=== PATIENT | female | born 1990 | race Caucasian/White ===

== ENCOUNTER 2017-05-25 20:05 | Emergency (ER) | payer OTHER ==
[2017-05-25 20:14] VITALS: BP 142/90; PULSE 118; RESP 24; TEMP 97.6
[2017-05-25] MEDS ORDERED: methylPREDNISolone SOD SUCCI 125 MG/2 ML VIAL IM STA (20:23)
[2017-05-25] MEDS ORDERED: ORPHENADRINE 30 MG/ML 2 ML VIAL IM STA (20:23)
[2017-05-25] MEDS ORDERED: KETOROLAC 60 MG/2 ML VIAL IM STA (20:23)
--- NOTE | 2017-05-25 20:30 | ED ---
General Adult HPI - General Chief complaint: Back Pain/Injury Stated complaint: back pain Time Seen by Provider: 05/25/17 20:16 Source: patient, RN notes reviewed Mode of arrival: ambulatory Limitations: no limitations - History of Present Illness Initial comments: 26-year-old female presents to the emergency 5 chief complaint of low back pain. Patient states that for last few days getting worse. Patient states that shoots down both legs worsen the left leg. Patient is a loss by bladder functioning saddle anesthesia. Patient history of back pain. Patient states there is no falls traumas or injuries that she is aware of. Patient states any movement causes back pain. Patient was concerned due to her continued discomfort so she thought that she should be evaluated.Patient denies any recent fever, chills, shortness of breath, chest pain, abdominal pain, nausea vomiting, numbness or tingling, dysuria or hematuria, constipation or diarrhea, headaches or visual changes, or any other current symptoms. - Related Data Previous Rx's Medication Instructions Recorded Ibuprofen [Motrin] 600 mg PO Q6HR PRN #20 tab 05/25/17 Orphenadrine [Norflex] 100 mg PO Q12H #10 tablet.er 05/25/17 predniSONE 50 mg PO DAILY #5 tab 05/25/17 Allergies Allergy/AdvReac Type Severity Reaction Status Date / Time No Known Allergies Allergy Verified 05/25/17 20:14 Review of Systems ROS Statement: Those systems with pertinent positive or pertinent negative responses have been documented in the HPI. ROS Other: All systems not noted in ROS Statement are negative. Past Medical History Additional Past Medical History / Comment(s): sciatica. History of Any Multi-Drug Resistant Organisms: None Reported Past Surgical History: No Surgical Hx Reported Past Psychological History: No Psychological Hx Reported Smoking Status: Never smoker Past Alcohol Use History: None Reported Past Drug Use History: None Reported General Exam Limitations: no limitations General appearance: alert, in no apparent distress ENT exam: Present: normal exam, mucous membranes moist Neck exam: Present: normal inspection. Absent: tenderness, meningismus, lymphadenopathy Respiratory exam: Present: normal lung sounds bilaterally. Absent: respiratory distress, wheezes, rales, rhonchi, stridor Cardiovascular Exam: Present: regular rate, normal rhythm, normal heart sounds. Absent: systolic murmur, diastolic murmur, rubs, gallop, clicks Extremities exam: Present: normal inspection, full ROM, normal capillary refill. Absent: tenderness, pedal edema, joint swelling, calf tenderness Back exam: Present: normal inspection, full ROM, other (Left-sided positive straight leg raise). Absent: tenderness, CVA tenderness (L), paraspinal tenderness Neurological exam: Present: alert, oriented X3, reflexes normal. Absent: motor sensory deficit Psychiatric exam: Present: normal affect, normal mood Skin exam: Present: warm, dry, intact, normal color. Absent: rash Course Vital Signs 05/25/17 20:10 Temperature 97.6 F Pulse Rate 118 H Respiratory 24 Rate Blood Pressure 142/90 O2 Sat by Pulse 100 Oximetry Medical Decision Making - Medical Decision Making 26-year-old female presents to the emergency Department chief complaint of what appears to be a flareup of sciatica. At this time x-rays are reviewed. We did discuss follow-up with ortho given their information. We discussed using medications as prescribed and return parameters all questions. Patient stated that she understood and she is with this plan. All questions have been answered. She will be discharged. - Radiology Data Radiology results: report reviewed, image reviewed Disposition Clinical Impression: Strain of lumbar region, Sciatica, left side Disposition: HOME SELF-CARE Condition: Stable Instructions: Acute Low Back Pain (ED) Additional Instructions: Please use medication as discussed. Please follow up with family doctor if symptoms have not improved over the next two days. Please return to the emergency room if your symptoms increase or worsen or for any other concerns. Prescriptions: Ibuprofen [Motrin] 600 mg PO Q6HR PRN #20 tab PRN Reason: Pain Orphenadrine [Norflex] 100 mg PO Q12H #10 tablet.er predniSONE 50 mg PO DAILY #5 tab Referrals: Amadou Masters MD [STAFF PHYSICIAN] - 1-2 days Emiliano Anne MD [STAFF PHYSICIAN] - 1-2 days Time of Disposition: 21:08
--- NOTE | 2017-05-25 20:46 | XR ---
EXAMINATION TYPE: XR lumbar spine 2 or 3V DATE OF EXAM: 05/25/2017 COMPARISON: NONE HISTORY: Back pain TECHNIQUE: 3 views FINDINGS: There is a slight levoscoliosis. There are 6 lumbar type vertebra. Posterior elements are i ntact. There is slight narrowing of the L4-5 disc space. Sacroiliac joints appear intact. IMPRESSION: Minor degenerative disc narrowing at L4-5 on the right side due to slight scoliotic defor mity. No fracture.
== END 2017-05-25 21:16 | disposition home or self-care (01) ==
LOC: EC 20:05
DX: S39.012A Strain of muscle, fascia and tendon of lower back, initial encounter (principal); M54.32 Sciatica, left side; X58.XXXA Exposure to other specified factors, initial encounter
CPT/HCPCS: 72100; 99283; 96372 ×3; J2360; J2930; J1885

== ENCOUNTER 2022-11-21 02:59 | Emergency (ER) | payer OTHER ==
--- NOTE | 2022-11-21 03:30 | ED ---
General Adult HPI <Irina Heredia - Last Filed: 11/21/22 07:22> - General Source: patient, RN notes reviewed Mode of arrival: wheelchair Limitations: no limitations <Patti Garcia - Last Filed: 11/24/22 00:59> - General Chief complaint: GI Bleed Stated complaint: Vomiting Blood Time Seen by Provider: 11/21/22 03:23 - History of Present Illness Initial comments: 32-year-old female with no significant past medical history presents to the emergency department with a chief complaint of vomiting blood. She reports that her symptoms started approximately 6:00pm on 11/20/2022. She repor ts generalized abdominal pain that is sharp and will come and go. She has not taken anything for his symptoms. She is complaining of accompanying symptoms of nausea however she has not vomited. She denies any known fevers, cough, chest pain, shortness of. She does report that she had a bout of bright red blood earlier today. She reports she's never had this before. She denies any recent alcohol or illicit drug use. (Patti Garcia) - Related Data Previous Rx's Medication Instructions Recorded Ibuprofen [Motrin] 600 mg PO Q6HR PRN #20 tab 05/25/17 Orphenadrine [Norflex] 100 mg PO Q12H #10 tablet.er 05/25/17 predniSONE 50 mg PO DAILY #5 tab 05/25/17 Amoxic-Pot Clav 875-125Mg 1 tab PO Q12HR #14 tab 11/21/22 [Augmentin 875-125] Dicyclomine [Bentyl] 10 mg PO TID PRN #15 capsule 11/21/22 Ibuprofen [Motrin] 600 mg PO Q8HR PRN #20 tab 11/21/22 Ondansetron Odt [Zofran Odt] 4 mg PO Q8HR PRN #15 tab 11/21/22 Allergies Allergy/AdvReac Type Severity Reaction Status Date / Time No Known Allergies Allergy Verified 11/21/22 03:13 Review of Systems ROS Other: All systems not noted in ROS Statement are negative. <Irina Heredia - Last Filed: 11/21/22 07:22> ROS Other: All systems not noted in ROS Statement are negative. <Patti Garcia - Last Filed: 11/24/22 00:59> ROS Statement: Those systems with pertinent positive or pertinent negative responses have been documented in the HPI. Past Medical History Additional Past Medical History / Comment(s): sciatica. History of Any Multi-Drug Resistant Organisms: None Reported Past Surgical History: No Surgical Hx Reported Past Psychological History: No Psychological Hx Reported Past Alcohol Use History: None Reported Past Drug Use History: None Reported <Patti Garcia - Last Filed: 11/24/22 00:59> General Exam Limitations: no limitations <Patti Garcia - Last Filed: 11/24/22 00:59> - General Exam Comments Initial Comments: General: Alert, in no acute distress Head: atraumatic normocephalic. Eyes PERRL, EOMI intact, mucous membranes moist Respiratory: Lungs clear to auscultation bilaterally Cardiovascular: Heart rate regular rate and rhythm Abdominal: Soft without guarding or rebound, generalized abdominal tenderness Extremities: Normal inspection with full range of motion and normal capillary refill Neuroogic: alert and oriented 3, CN II-XII intact, able to ambulate with steady gait Skin: warm dry and intact with normal color (Patti Garcia) Course <Patti Garcia - Last Filed: 11/24/22 00:59> Vital Signs 11/21/22 11/21/22 11/21/22 03:14 05:00 06:21 Temperature 97.9 F 98.2 F Pulse Rate 94 72 81 Respiratory 18 16 16 Rate Blood Pressure 128/82 119/74 110/71 O2 Sat by Pulse 98 99 100 Oximetry - Reevaluation(s) Reevaluation #1: 11/21/22 03:59 Rectal exam performed with ER studio technician video operator however present as hedis coordinator. No occult blood in the rectal vault. Patient tolerated well. 11/21/22 04:[address] Heredia who assumes care of the patient while awaiting CT and lab results (Patti Garcia) Medical Decision Making - Lab Data Result diagrams: 11/21/22 04:10 11/21/22 04:10 <Irina Heredia - Last Filed: 11/21/22 07:22> - Lab Data Result diagrams: 11/21/22 04:10 11/21/22 04:10 <Patti Garcia - Last Filed: 11/24/22 00:59> - Medical Decision Making Patient was signed out to me awaiting labs and imaging. Laboratory studies demonstrate hemoglobin of 14.6. Occult is negative. CT demonstrates a focal segment of colitis. Patient given a dose of Rocephin and will be discharged home on Zofran, Bentyl, Augmentin. Instructed to follow up with primary care doctor in 2-4 days return for any new or worsening symptoms. Patient was agreeable plan she was discharged with stable condition (Irina Heredia) Was pt. sent in by a medical professional or institution (RANDAL Hanson, RAIL OPERATOR, urgent care, hospital, or senior care...) When possible be specific @ -[No] Did you speak to anyone other than the patient for history (EMS, parent, family, police, friend...)? What history was obtained from this source @ -Mother Did you review nursing and triage notes (agree or disagree)? Why? @ -[I reviewed and agree with nursing and triage notes] Were old charts reviewed (outside hosp., previous admission, EMS record, old EKG, old radiological studies, urgent care reports/EKG's, senior care records)? Report findings @ -[No old charts were reviewed] Differential Diagnosis (chest pain, altered mental status, abdominal pain women, abdominal pain men, vaginal bleeding, weakness, fever, dyspnea, syncope, headache, dizziness, GI bleed, back pain, seizure, CVA, palpatations, mental health, musculoskeletal)? @ -[not applicable] EKG interpreted by me (3pts min.). @ -[As above] X-rays interpreted by me (1pt min.). @ -[None done] CT interpreted by me (1pt min.). @ -[None done] U/S interpreted by me (1pt. min.). @ -[None done] What testing was considered but not performed or refused? (CT, X-rays, U/S, labs)? Why? @ -[None] What meds were considered but not given or refused? Why? @ -[None] Did you discuss the management of the patient with other professionals (professionals i.e. RANDAL Hanson, RAIL OPERATOR, lab, RT, psych nurse, social worker assistant, family lawyer, teacher, guest relations officer, watch caser)? Give summary @ -[No] Was smoking cessation discussed for >3mins.? @ -[No] Was critical care preformed (if so, how long)? @ -[No] Were there social determinants of health that impacted care today? How? (Homelessness, low income, unemployed, alcoholism, drug addiction, transportation, low edu. Level, literacy, decrease access to med. care, group home, rehab)? @ -[No] Was there de-escalation of care discussed even if they declined (Discuss DNR or withdrawal of care, Hospice)? DNR status @ -[No] What co-morbidities impacted this encounter? (DM, HTN, Smoking, COPD, CAD, Cancer, CVA, ARF, Chemo, Hep., AIDS, mental health diagnosis, sleep apnea, morbid obesity)? @ -[None] Was patient admitted / discharged? Hospital course, mention meds given and route, prescriptions, significant lab abnormalities, going to OR and other pertinent info. @ -Pending. This is a 32-year-old female who presents the emergency department with abdominal pain. Patient had a thorough history and physical exam performed while in the ED. Physical exam reveals heart rate regular rate and rhythm, lungs clear to auscultation bilaterally abdomen soft and with generalized tenderness. Patient had lab work and imaging ordered. Case was signed out to RYAN Mehta while awaiting further lab results Undiagnosed new problem with uncertain prognosis? @ -[No] Drug Therapy requiring intensive monitoring for toxicity (Heparin, Nitro, Insuli n, Cardizem)? @ -[No] Were any procedures done? @ -[No] Diagnosis/symptom? @ -abdominal pain Acute, or Chronic, or Acute on Chronic? @ -acute Uncomplicated (without systemic symptoms) or Complicated (systemic symptoms)? @ -uncomplicated Side effects of treatment? @ -[No] Exacerbation, Progression, or Severe Exacerbation? @ -[No] Poses a threat to life or bodily function? How? (Chest pain, USA, VT, pneumonia, PE, COPD, DKA, ARF, appy, cholecystitis, CVA, Diverticulitis, Homicidal, Suicidal, threat to staff... and all critical care pts) @ -low likelihood (Patti Garcia) - Lab Data Lab Results 11/21/22 11/21/22 11/21/22 Range/Units 04:09 04:10 04:10 WBC 10.8 H (3.8-10.6) k/uL RBC 5.13 (3.80-5.40) m/uL Hgb 14.6 (11.4-16.0) gm/dL Hct 42.1 (34.0-46.0) % MCV 82.1 (80.0-100.0) fL MCH 28.4 (25.0-35.0) pg MCHC 34.6 (31.0-37.0) g/dL RDW 12.5 (11.5-15.5) % Plt Count 299 (150-450) k/uL MPV 7.2 Neutrophils % 85 % Lymphocytes % 11 % Monocytes % 4 % Eosinophils % 0 % Basophils % 0 % Neutrophils # 9.1 H (1.3-7.7) k/uL Lymphocytes # 1.1 (1.0-4.8) k/uL Monocytes # 0.4 (0-1.0) k/uL Eosinophils # 0.0 (0-0.7) k/uL Basophils # 0.0 (0-0.2) k/uL Sodium (137-145) mmol/L Potassium (3.5-5.1) mmol/L Chloride (98-107) mmol/L Carbon Dioxide (22-30) mmol/L Anion Gap mmol/L BUN (7-17) mg/dL Creatinine (0.52-1.04) mg/dL Est GFR (CKD-EPI)AfAm (>60 ml/min/1.73 sqM) Est GFR (CKD-EPI)NonAf (>60 ml/min/1.73 sqM) Glucose (74-99) mg/dL Calcium (8.4-10.2) mg/dL Total Bilirubin (0.2-1.3) mg/dL AST (14-36) U/L ALT (4-34) U/L Alkaline Phosphatase (38-126) U/L Total Protein (6.3-8.2) g/dL Albumin (3.5-5.0) g/dL Amylase (30-110) U/L Lipase (23-300) U/L Urine HCG, Qual Not Detected (Not Detectd) Stool Occult Blood Negative (Negative) Influenza Type A (PCR) (Not Detectd) Influenza Type B (PCR) (Not Detectd) RSV (PCR) (Not Detectd) SARS-CoV-2 (PCR) (Not Detectd) 11/21/22 11/21/22 Range/Units 04:10 04:10 WBC (3.8-10.6) k/uL RBC (3.80-5.40) m/uL Hgb (11.4-16.0) gm/dL Hct (34.0-46.0) % MCV (80.0-100.0) fL MCH (25.0-35.0) pg MCHC (31.0-37.0) g/dL RDW (11.5-15.5) % Plt Count (150-450) k/uL MPV Neutrophils % % Lymphocytes % % Monocytes % % Eosinophils % % Basophils % % Neutrophils # (1.3-7.7) k/uL Lymphocytes # (1.0-4.8) k/uL Monocytes # (0-1.0) k/uL Eosinophils # (0-0.7) k/uL Basophils # (0-0.2) k/uL Sodium 136 L (137-145) mmol/L Potassium 3.9 (3.5-5.1) mmol/L Chloride 103 (98-107) mmol/L Carbon Dioxide 21 L (22-30) mmol/L Anion Gap 12 mmol/L BUN 12 (7-17) mg/dL Creatinine 0.73 (0.52-1.04) mg/dL Est GFR (CKD-EPI)AfAm >90 (>60 ml/min/1.73 sqM) Est GFR (CKD-EPI)NonAf >90 (>60 ml/min/1.73 sqM) Glucose 122 H (74-99) mg/dL Calcium 10.0 (8.4-10.2) mg/dL Total Bilirubin 0.5 (0.2-1.3) mg/dL AST 24 (14-36) U/L ALT 18 (4-34) U/L Alkaline Phosphatase 43 (38-126) U/L Total Protein 7.0 (6.3-8.2) g/dL Albumin 4.1 (3.5-5.0) g/dL Amylase 47 (30-110) U/L Lipase 23 (23-300) U/L Urine HCG, Qual (Not Detectd) Stool Occult Blood (Negative) Influenza Type A (PCR) Not Detected (Not Detectd) Influenza Type B (PCR) Not Detected (Not Detectd) RSV (PCR) Not Detected (Not Detectd) SARS-CoV-2 (PCR) Not Detected (Not Detectd) Disposition Is patient prescribed a controlled substance at d/c from ED?: No Time of Disposition: 06:39 <Irina Heredia - Last Filed: 11/21/22 07:22> <Patti Garcia - Last Filed: 11/24/22 00:59> Clinical Impression: Nausea and vomiting Disposition: HOME SELF-CARE Condition: Stable Instructions (If sedation given, give patient instructions): Colitis (ED) Additional Instructions: Please take Motrin and Tylenol for pain. Alternate taking 1 every 4 hours. Follow up with the GI doctor in regards to your symptoms. And return for any uncontrolled heavy bleeding Prescriptions: Amoxic-Pot Clav 875-125Mg [Augmentin 875-125] 1 tab PO Q12HR #14 tab Dicyclomine [Bentyl] 10 mg PO TID PRN #15 capsule PRN Reason: See Comments Ibuprofen [Motrin] 600 mg PO Q8HR PRN #20 tab PRN Reason: Pain Ondansetron Odt [Zofran Odt] 4 mg PO Q8HR PRN #15 tab PRN Reason: Nausea Referrals: None,Stated [Primary Care Provider] - 1-2 days Sofya Andrade MD [STAFF PHYSICIAN] - 1-2 days
[2022-11-21] MEDS ORDERED: ONDANSETRON 4 MG/2 ML VIAL IVP STA (04:01)
[2022-11-21] MEDS ORDERED: METOCLOPRAMIDE 5 MG/ML 2 ML VIAL IVP STA (04:01)
[2022-11-21] MEDS ORDERED: SODIUM CHLORIDE 0.9% 1,000 ML IV ONE (04:01)
[2022-11-21] MEDS ORDERED: KETOROLAC 15 MG/ML 1 ML VIAL IVP STA (04:02)
[2022-11-21] MEDS ORDERED: FAMOTIDINE 20 MG/2 ML VIAL IV STA (04:02)
[2022-11-21] MEDS ORDERED: diphenhydrAMINE 50 MG/ML 1 ML VIAL IVP STA (04:23)
[2022-11-21 04:37] LABS: Basophils % (A) 0 %; Eosinophils % (A) 0 %; HCT 42.1 % (34.0-46.0); HGB 14.6 gm/dL (11.4-16.0); Lymphocytes # (A) 1.1 k/uL (1.0-4.8); Lymphocytes % (A) 11 %; MCH 28.4 pg (25.0-35.0); MCHC 34.6 g/dL (31.0-37.0); MCV 82.1 fL (80.0-100.0); Mean Platelet Volume 7.2; Monocytes # (A) 0.4 k/uL (0-1.0); Monocytes % (A) 4 %; Neutrophils # (A) 9.1 k/uL (1.3-7.7); Neutrophils % (A) 85 %; Platelet Count 299 k/uL (150-450); RBC 5.13 m/uL (3.80-5.40); RDW 12.5 % (11.5-15.5); WBC 10.8 k/uL (3.8-10.6)
[2022-11-21 04:47] LABS: ALT 18 U/L (4-34); AST 24 U/L (14-36); African American GFR (CKD) >90 (>60 ml/min/1.73 sqM); Albumin 4.1 g/dL (3.5-5.0); Alkaline Phosphatase 43 U/L (38-126); Amylase 47 U/L (30-110); Anion Gap 12 mmol/L; Blood Urea Nitrogen 12 mg/dL (7-17); Carbon Dioxide 21 mmol/L (22-30); Chloride 103 mmol/L (98-107); Glucose 122 mg/dL (74-99); Lipase 23 U/L (23-300); Non-African American GFR(CKD) >90 (>60 ml/min/1.73 sqM); Potassium 3.9 mmol/L (3.5-5.1); Sodium 136 mmol/L (137-145); Total Bilirubin 0.5 mg/dL (0.2-1.3)
[2022-11-21 05:28] VITALS: RESP 16
--- NOTE | 2022-11-21 06:17 | CT ---
EXAMINATION TYPE: CT abdomen pelvis w con DATE OF EXAM: 11/21/2022 HISTORY: Vomiting blood and blood in stool CT DLP: 691mGycm Automated Exposure Control for Dose Reduction was Utilized. CONTRAST: CT scan of the abdomen and pelvis is performed without oral with IV Contrast, patient injected with 1 00ml mL of Isovue 300. COMPARISON: None. FINDINGS: LUNG BASES: No significant abnormality is appreciated. LIVER/GB: No significant abnormality is appreciated. PANCREAS: No significant abnormality is seen. SPLEEN: No significant abnormality is seen. ADRENALS: No significant abnormality is seen. KIDNEYS: No significant abnormality is seen. BOWEL: Slightly suboptimal study without enteric contrast. No suspicious small or large bowel dilatat ion. Focal moderate to severe wall thickening beginning in the mid transverse colon extending through the splenic flexure through the entire left colon. There is focal mild/moderate ill-defined fluid an d fat stranding near region of the splenic flexure axial image 25. No well formed fluid collection or abscess. No free air. UTERUS/ADNEXA: No gross abnormality seen. LYMPH NODES: No greater than 1cm abdominal or pelvic lymph nodes are appreciated. OSSEOUS STRUCTURES: Moderate disc space narrowing L3-L4 level. OTHER: Small fat-containing umbilical hernia. IMPRESSION: CT findings consistent with a uncomplicated acute focal colitis centered near the splenic flexure. Differential includes infectious, inflammatory, and extremely unlikely ischemic etiology.
[2022-11-21 06:22] VITALS: BP 110/71; PULSE 81
[2022-11-21] MEDS ORDERED: cefTRIAXone IN SWFI 1,000 MG/10 ML SYRINGE IVP STA (06:22)
[2022-11-21 06:25] VITALS: TEMP 98.2
== END 2022-11-21 06:40 | disposition home or self-care (01) ==
LOC: EC 02:59
DX: R11.2 Nausea with vomiting, unspecified (principal); Z20.822 Contact with and (suspected) exposure to COVID-19
CPT/HCPCS: 36415; 80053; 82150; 83690; 85025; 82272; 81025; 87636; 74177; 99285; 96374; 96375 ×5; 96361; J1200; J2765; J2405; J0696; J1885; Q9967

== ENCOUNTER 2023-10-03 16:52 | Observation (INO) | payer OTHER ==
--- NOTE | 2023-10-03 17:26 | ED ---
Chest Pain HPI - General Chief Complaint: Chest Pain Stated Complaint: Chest Pains Time Seen by Provider: 10/03/23 17:07 Source: patient, RN notes reviewed, old records reviewed Mode of arrival: ambulatory Limitations: no limitations - History of Present Illness Initial Comments: This is a 32-year-old female to the ER for evaluation. Patient was seen for evaluation of chest pain or shortness of breath. Patient has persistent chest pain here in the ER severe anterior chest pain with shortness of breath. Does not feel well open feeling weak and fatigued. Patient states the pain has been episodic maybe for about a month and has been causing her higher heart rates, she went to the urgent care and was sent to the ER for evaluation MD Complaint: chest pain -: week(s) Onset: during rest, during exertion Pain Location: substernal, left chest Pain Radiation: none Severity: moderate Severity scale (1-10): 4 Quality: heaviness, sharp Consistency: intermittent Improves With: nothing Worsens With: nothing Anginal Symptoms: dyspnea, sense of impending doom Other Symptoms: palpitations Treatments Prior to Arrival: none - Related Data On Oral Contraceptives: No Home Medications Medication Instructions Recorded Confirmed Control(Unknown) 1 tab PO HS 10/03/23 10/04/23 Dextroamphetamine/Amphetamine 30 mg PO BID@0500,1400 10/03/23 10/04/23 [Adderall] Magnesium Oxide [Magnesium] 500 mg PO HS 10/03/23 10/04/23 Allergies Allergy/AdvReac Type Severity Reaction Status Date / Time No Known Allergies Allergy Verified 10/04/23 10:40 Review of Systems ROS Statement: Those systems with pertinent positive or pertinent negative responses have been documented in the HPI. ROS Other: All systems not noted in ROS Statement are negative. EKG Findings - EKG Comments: EKG Findings:: EKG is sinus tachycardia 110 MO 125 QRS 88 QTc 388 - EKG Results: EKG: interpreted by ERMD - Dysrhythmias: Sinus rhythms and dysrhythmias: sinus rhythm (EKG sinus 95 MO 130 QRS 87 QTc 389) Past Medical History Additional Past Medical History / Comment(s): sciatica. History of Any Multi-Drug Resistant Organisms: None Reported Past Surgical History: No Surgical Hx Reported Past Psychological History: Anxiety Past Alcohol Use History: None Reported Past Drug Use History: None Reported General Exam Limitations: no limitations General appearance: alert, in no apparent distress, anxious Head exam: Present: atraumatic, normocephalic, normal inspection Eye exam: Present: normal appearance, PERRL, EOMI. Absent: scleral icterus, conjunctival injection, periorbital swelling ENT exam: Present: normal exam, mucous membranes moist Neck exam: Present: normal inspection. Absent: tenderness, meningismus, lymphadenopathy Respiratory exam: Present: normal lung sounds bilaterally. Absent: respiratory distress, wheezes, rales, rhonchi, stridor Cardiovascular Exam: Present: normal rhythm, tachycardia, normal heart sounds. Absent: systolic murmur, diastolic murmur, rubs, gallop, clicks GI/Abdominal exam: Present: soft, normal bowel sounds. Absent: distended, tenderness, guarding, rebound, rigid Extremities exam: Present: normal inspection, full ROM, normal capillary refill. Absent: tenderness, pedal edema, joint swelling, calf tenderness Back exam: Present: normal inspection Neurological exam: Present: alert, oriented X3, CN II-XII intact Psychiatric exam: Present: normal affect, normal mood Skin exam: Present: warm, dry, intact, normal color. Absent: rash Course Vital Signs 10/03/23 10/03/23 10/03/23 16:58 19:02 20:14 Temperature 97.7 F Pulse Rate 119 H 85 89 Respiratory 18 20 20 Rate Blood Pressure 134/95 121/81 134/87 O2 Sat by Pulse 100 99 95 Oximetry 10/03/23 10/04/23 21:40 00:22 Temperature 98.5 F Pulse Rate 90 94 Respiratory 20 18 Rate Blood Pressure 122/76 134/93 O2 Sat by Pulse 100 Oximetry - Reevaluation(s) Reevaluation #1: 10/03/23 19:46 Medical records reviewed Reevaluation #2: 10/03/23 19:46 Patient symptoms unchanged despite pain medication Reevaluation #3: 10/03/23 19:46 Patient informed of results and questions answered Studies CTA chest is negative for acute disease Reevaluation #4: Was pt. sent in by a medical professional or institution (, PA, EMERGENCY SERVICE WORKER, urgent care, hospital, or [facility]...) When possible be specific @ -no Did you speak to anyone other than the patient for history (EMS, parent, family, police, friend...)? What history was obtained from this source @ -no Did you review nursing and triage notes (agree or disagree)? Why? @ -agree Are old charts reviewed (outside hosp., previous admission, EMS record, old EKG, old radiological studies, urgent care reports/EKG's, [facility] records)? Report findings @ -yes Differential Diagnosis (chest pain, altered mental status, abdominal pain women, abdominal pain men, vaginal bleeding, weakness, fever, dyspnea, syncope, headache, dizziness, GI bleed, back pain, seizure, CVA, palpatations, mental health, musculoskeletal)? @ -prior EKG interpreted by me (3pts min.). @ -yes X-rays interpreted by me (1pt min.). @ -no CT interpreted by me (1pt min.). @ -yes negative for acute disease U/S interpreted by me (1pt. min.). @ -no What testing was considered but not performed or refused? (CT, X-rays, U/S, labs)? Why? @ -none What meds were considered but not given or refused? Why? @ -none Did you discuss the management of the patient with other professionals (professionals i.e. , PA, EMERGENCY SERVICE WORKER, lab, RT, psych nurse, child welfare social worker, supervisor heat treating, teacher, penal officer, social work case manager)? Give summary @ -no Was smoking cessation discussed for >3mins.? @ -no Was critical care preformed (if so, how long)? @ -no Were there social determinants of health that impacted care today? How? (Homelessness, low income, unemployed, alcoholism, drug addiction, transportation, low edu. Level, literacy, decrease access to med. care, [facility], rehab)? @ -none Was there de-escalation of care discussed even if they declined (Discuss DNR or withdrawal of care, Hospice)? DNR status @ -no What co-morbidities impacted this encounter? (DM, HTN, Smoking, COPD, CAD, Cancer, CVA, ARF, Chemo, Hep., AIDS, mental health diagnosis, sleep apnea, morbid obesity)? @ -none Was patient admitted / discharged? Hospital course, mention meds given and route, prescriptions, significant lab abnormalities, going to OR and other pertinent info. @ - 32 female to the ER for evaluation of chest pain. Patient has persistent heavy chest pain sharp chest pain here in the emergency department and feels uncomfortable. Patient has a mild troponin leak and will admit for cardiology evaluation Discharge Undiagnosed new problem with uncertain prognosis? @ -no Drug Therapy requiring intensive monitoring for toxicity (Heparin, Nitro, Insulin, Cardizem)? @ -no Were any procedures done? @ -no Diagnosis/symptom? @ -Chest pain Acute, or Chronic, or Acute on Chronic? @ -Acute Uncomplicated (without systemic symptoms) or Complicated (systemic symptoms)? @ -Complicated Side effects of treatment? @ -no Exacerbation, Progression, or Severe Exacerbation? @ -exacerbation Poses a threat to life or bodily function? How? (Chest pain, [place], [place], pneumonia, PE, COPD, DKA, ARF, appy, cholecystitis, CVA, Diverticulitis, Homicidal, Suicidal, threat to staff... and all critical care pts) @ -yes with significant chest pain Reevaluation #5: Differential Chest Pain: Stable Angina, Unstable Angina, STEMI, NSTEMI Aortic Dissection, Pneumothorax, Musculoskeletal, Esophageal Spasm GERD, Cholecystitis, Pancreatitis, Zoster, this is not meant to be an all-inclusive list. - Consultations Consultation #1: Carmen chappell who agrees to admit this patient Chest Pain MDM - MDM 32 female to the ER for evaluation of chest pain. Patient has persistent heavy chest pain sharp chest pain here in the emergency department and feels uncomfortable. Patient has a mild troponin leak and will admit for cardiology evaluation Disposition Clinical Impression: Atypical chest pain, Chest pain Disposition: LEFT AGAINST MEDICAL ADVICE Condition: Good Is patient prescribed a controlled substance at d/c from ED?: No Time of Disposition: 19:45
[2023-10-03 18:05] LABS: Basophils # (A) 0.1 k/uL (0-0.2); Basophils % (A) 1 %; Eosinophils # (A) 0.1 k/uL (0-0.7); Eosinophils % (A) 1 %; HCT 48.1 % (34.0-46.0); HGB 16.2 gm/dL (11.4-16.0); Lymphocytes # (A) 2.1 k/uL (1.0-4.8); Lymphocytes % (A) 23 %; MCH 28.6 pg (25.0-35.0); MCHC 33.7 g/dL (31.0-37.0); MCV 84.8 fL (80.0-100.0); Mean Platelet Volume 7.6; Monocytes # (A) 0.3 k/uL (0-1.0); Monocytes % (A) 3 %; Neutrophils # (A) 6.6 k/uL (1.3-7.7); Neutrophils % (A) 72 %; Platelet Count 342 k/uL (150-450); RBC 5.67 m/uL (3.80-5.40); RDW 12.6 % (11.5-15.5); WBC 9.2 k/uL (3.8-10.6)
[2023-10-03 18:23] LABS: ALT 17 U/L (4-34); African American GFR (CKD) >90 (>60 ml/min/1.73 sqM); Albumin 4.7 g/dL (3.5-5.0); Anion Gap 10 mmol/L; Blood Urea Nitrogen 10 mg/dL (7-17); Calcium 10.1 mg/dL (8.4-10.2); Carbon Dioxide 21 mmol/L (22-30); Chloride 107 mmol/L (98-107); Glucose 89 mg/dL (74-99); Lipase 38 U/L (23-300); Non-African American GFR(CKD) >90 (>60 ml/min/1.73 sqM); Sodium 138 mmol/L (137-145); Total Bilirubin 0.7 mg/dL (0.2-1.3); Total Protein 8.2 g/dL (6.3-8.2)
[2023-10-03 18:24] LABS: AST 34 U/L (14-36); Alkaline Phosphatase 47 U/L (38-126); Magnesium 2.1 mg/dL (1.6-2.3)
[2023-10-03 18:30] LABS: NT-Pro-B-Type Natriuretic Pept 32 pg/mL
[2023-10-03 18:31] LABS: INR 0.9 (<1.2); Prothrombin Time 9.9 sec (10.0-12.5)
[2023-10-03 18:37] LABS: Partial Thromboplastin Time 21.1 sec (22.0-30.0)
--- NOTE | 2023-10-03 18:38 | CT ---
EXAMINATION TYPE: CT angio chest CT DLP: 229.1 mGycm, Automated exposure control for dose reduction was used. DATE OF EXAM: 10/03/2023 6:20 PM COMPARISON: None CLINICAL INDICATION:Female, 32 years old with history of PE; chest pain TECHNIQUE/CONTRAST: CTA scan of the thorax is performed with IV Contrast, patient injected with 100 ml mL of Isovue 370, MIP images are created and reviewed these are created on a separate workstation.. FINDINGS: Pulmonary Artery: There is no evidence for a filling defect within the pulmonary vasculature to sugge st acute pulmonary embolism. The pulmonary artery is of normal size. Lungs/Pleura: No evidence of focal consolidation, pleural effusion or pneumothorax. Airway: Large airways are patent. Heart: Heart is within normal limits for size. Vasculature: No evidence of aortic aneurysm. Mediastinum: No gross evidence of adenopathy. Musculoskeletal: No acute osseous abnormalities Soft Tissues: Unremarkable. Lower neck: No significant findings. Upper Abdomen: No significant findings. IMPRESSION: No evidence of pulmonary embolism.
[2023-10-03] MEDS: KETOROLAC 15 MG/ML 1 ML VIAL IVP STA (19:30)
[2023-10-03] MEDS: MORPHINE SULFATE 4 MG/ML SYRINGE IV STA (19:31)
[2023-10-03] MEDS: SODIUM CHLORIDE 0.9% 1,000 ML IV STA (19:31)
[2023-10-03] MEDS ORDERED: KETOROLAC 15 MG/ML 1 ML VIAL IVP PRN (19:44)
[2023-10-03] MEDS ORDERED: MORPHINE SULFATE 4 MG/ML SYRINGE IV PRN (19:44)
[2023-10-03] MEDS ORDERED: ONDANSETRON 4 MG/2 ML VIAL IVP PRN (19:44)
[2023-10-03] MEDS ORDERED: NALOXONE 0.4 MG/ML 1 ML VIAL IV PRN (19:44)
[2023-10-03] MEDS: SODIUM CHLORIDE 0.9% 1,000 ML IV SCH (20:11)
[2023-10-04 00:33] VITALS: BP 134/93; PULSE 94; RESP 18; TEMP 98.5
== END 2023-10-04 00:22 | disposition left against medical advice (07) ==
LOC: EC 16:52 → 6NMEDSUR 19:45
PROVIDERS: ADMIT Internal Medicine; ATTEND Internal Medicine
DX: R07.89 Other chest pain (principal); R79.89 Other specified abnormal findings of blood chemistry; R06.02 Shortness of breath; R00.2 Palpitations; R00.0 Tachycardia, unspecified; Z53.29 Procedure and treatment not carried out because of patient's decision for other reasons; Z79.3 Long term (current) use of hormonal contraceptives; Z79.899 Other long term (current) drug therapy
CPT/HCPCS: 96360; 96361; 99285; 36415; 93005; 85379; 83880; 80053; 83690; 83735; 84484; 85025; 85610; 85730; 71275; G0378; Q9967

== ENCOUNTER 2023-10-04 07:54 | Observation (INO) | payer OTHER ==
--- NOTE | 2023-10-04 08:08 | ED ---
General Adult HPI - General Chief complaint: Chest Pain Stated complaint: Chest Pain Time Seen by Provider: 10/04/23 08:02 Source: patient, RN notes reviewed, old records reviewed Mode of arrival: ambulatory Limitations: no limitations - History of Present Illness Initial comments: Patient is a pleasant 32-year-old female present to the emergency department with concerns for chest discomfort. Onset of symptoms was yesterday. Patient was in the emergency department last night and left AGAINST MEDICAL ADVICE. Patient states she had to go take her child to school. Patient states symptoms have continued. No palpitations. Patient states she does get easily winded. Patient admits to feeling anxious and states that is pretty constant for her. N o calf pain or leg swelling. No nausea. No diaphoresis. No history of known heart disease. - Related Data Home Medications Medication Instructions Recorded Confirmed Control(Unknown) 1 tab PO HS 10/03/23 10/04/23 Dextroamphetamine/Amphetamine 30 mg PO BID@0500,1400 10/03/23 10/04/23 [Adderall] Magnesium Oxide [Magnesium] 500 mg PO HS 10/03/23 10/04/23 Allergies Allergy/AdvReac Type Severity Reaction Status Date / Time No Known Allergies Allergy Verified 10/04/23 10:40 Review of Systems ROS Statement: Those systems with pertinent positive or pertinent negative responses have been documented in the HPI. ROS Other: All systems not noted in ROS Statement are negative. Constitutional: Denies: fever Eyes: Denies: eye pain ENT: Denies: ear pain Respiratory: Reports: as per HPI. Denies: cough Cardiovascular: Reports: as per HPI, chest pain. Denies: palpitations Endocrine: Denies: fatigue Gastrointestinal: Denies: abdominal pain, vomiting Musculoskeletal: Denies: back pain Past Medical History Additional Past Medical History / Comment(s): sciatica. colitis History of Any Multi-Drug Resistant Organisms: None Reported Past Surgical History: No Surgical Hx Reported Past Psychological History: Anxiety Past Alcohol Use History: None Reported Past Drug Use History: None Reported General Exam Limitations: no limitations General appearance: alert, in no apparent distress Head exam: Present: normocephalic Eye exam: Present: normal appearance Neck exam: Present: normal inspection Respiratory exam: Present: normal lung sounds bilaterally Cardiovascular Exam: Present: normal rhythm, tachycardia Expanded Peripheral pulses: 2+: Radial (R), Radial (L), Dorsalis Pedis (R), Dorsalis Pedis (L) GI/Abdominal exam: Present: soft. Absent: tenderness Extremities exam: Present: normal inspection. Absent: pedal edema, calf tenderness Neurological exam: Present: alert Psychiatric exam: Present: normal affect, normal mood Skin exam: Present: normal color Course Vital Signs 10/04/23 10/04/23 10/04/23 07:55 09:58 10:52 Temperature 97.7 F Pulse Rate 142 H 124 H 98 Respiratory 24 18 18 Rate Blood Pressure 140/102 147/96 135/92 O2 Sat by Pulse 97 100 100 Oximetry EKG Findings - EKG Results: EKG: interpreted by ERMD, sinus rhythm, normal axis, normal QRS, normal ST/T EKG shows: tachycardia Medical Decision Making - Medical Decision Making Was pt. sent in by a medical professional or institution (Dr. PA, TRAIN CONDUCTOR, urgent care, hospital, or long-term...) When possible be specific @ -No Did you speak to anyone other than the patient for history (EMS, parent, family, police, friend...)? What history was obtained from this source @ -No Did you review nursing and triage notes (agree or disagree)? Why? @ -I reviewed and agree with nursing and triage notes Were old charts reviewed (outside hosp., previous admission, EMS record, old EKG, old radiological studies, urgent care reports/EKG's, long-term records)? Report findings @ -Previous labs and x-ray reviewed Differential Diagnosis (chest pain, altered mental status, abdominal pain women, abdominal pain men, vaginal bleeding, weakness, fever, dyspnea, syncope, headache, dizziness, GI bleed, back pain, seizure, CVA, palpatations, mental health, musculoskeletal)? @ -Differential Chest Pain: Stable Angina, Unstable Angina, STEMI, NSTEMI Aortic Dissection, Pneumothorax, Musculoskeletal, Esophageal Spasm GERD, Cholecystitis, Pancreatitis, Zoster, this is not meant to be an all-inclusive list. EKG interpreted by me (3pts min.). @ -As above X-rays interpreted by me (1pt min.). @ -Chest x-ray shows no acute process CT interpreted by me (1pt min.). @ -None done U/S interpreted by me (1pt. min.). @ -None done What testing was considered but not performed or refused? (CT, X-rays, U/S, labs)? Why? @ -None What meds were considered but not given or refused? Why? @ -None Did you discuss the management of the patient with other professionals (professionals i.e. , PA, TRAIN CONDUCTOR, lab, RT, psych nurse, social secretary, director of nuclear medicine, teacher, professional security officer, protective services case worker)? Give summary @ -Discussed with Dr. Stanford who will admit covering hospital call Was smoking cessation discussed for >3mins.? @ -No Was critical care preformed (if so, how long)? @ -No Were there social determinants of health that impacted care today? How? (Homelessness, low income, unemployed, alcoholism, drug addiction, transportation, low edu. Level, literacy, decrease access to med. care, shelter, rehab)? @ -No Was there de-escalation of care discussed even if they declined (Discuss DNR or withdrawal of care, Hospice)? DNR status @ -No What co-morbidities impacted this encounter? (DM, HTN, Smoking, COPD, CAD, Cancer, CVA, ARF, Chemo, Hep., AIDS, mental health diagnosis, sleep apnea, morbid obesity)? @ -Family history of cardiac disease at a young age Was patient admitted / discharged? Hospital course, mention meds given and route, prescriptions, significant lab abnormalities, going to OR and other pertinent info. @ -Patient was seen in the emergency department last night and left AGAINST MEDICAL ADVICE. Patient returns with similar symptoms. No improvement with Ativan however patient did feel much better with a single nitroglycerin. Patient is updated on results and plan. Case was discussed with Dr. Crum who will admit covering hospital call. Undiagnosed new problem with uncertain prognosis? @ -No Drug Therapy requiring intensive monitoring for toxicity (Heparin, Nitro, Insulin, Cardizem)? @ -No Were any procedures done? @ -No Diagnosis/symptom? @ -Chest pain Acute, or Chronic, or Acute on Chronic? @ -Acute Uncomplicated (without systemic symptoms) or Complicated (systemic symptoms)? @ -Default Side effects of treatment? @ -No Exacerbation, Progression, or Severe Exacerbation? @ -No Poses a threat to life or bodily function? How? (Chest pain, [place], [place], pneumonia, PE, COPD, DKA, ARF, appy, cholecystitis, CVA, Diverticulitis, Homicidal, Suicidal, threat to staff... and all critical care pts) @ -No - Lab Data Result diagrams: 10/04/23 08:36 10/04/23 08:36 Lab Results 10/04/23 10/04/23 10/04/23 Range/Units 08:36 08:36 08:36 WBC 7.8 (3.8-10.6) k/uL RBC 5.15 (3.80-5.40) m/uL Hgb 15.0 (11.4-16.0) gm/dL Hct 43.9 (34.0-46.0) % MCV 85.3 (80.0-100.0) fL MCH 29.2 (25.0-35.0) pg MCHC 34.3 (31.0-37.0) g/dL RDW 12.8 (11.5-15.5) % Plt Count 315 (150-450) k/uL MPV 8.0 Neutrophils % 79 % Lymphocytes % 16 % Monocytes % 3 % Eosinophils % 1 % Basophils % 1 % Neutrophils # 6.2 (1.3-7.7) k/uL Lymphocytes # 1.3 (1.0-4.8) k/uL Monocytes # 0.2 (0-1.0) k/uL Eosinophils # 0.0 (0-0.7) k/uL Basophils # 0.0 (0-0.2) k/uL PT 10.0 (10.0-12.5) sec INR 0.9 (<1.2) APTT 22.0 (22.0-30.0) sec Sodium 138 (137-145) mmol/L Potassium 3.4 L (3.5-5.1) mmol/L Chloride 105 (98-107) mmol/L Carbon Dioxide 24 (22-30) mmol/L Anion Gap 9 mmol/L BUN 11 (7-17) mg/dL Creatinine 0.78 (0.52-1.04) mg/dL Est GFR (CKD-EPI)AfAm >90 (>60 ml/min/1.73 sqM) Est GFR (CKD-EPI)NonAf >90 (>60 ml/min/1.73 sqM) Glucose 176 H (74-99) mg/dL Calcium 9.7 (8.4-10.2) mg/dL Magnesium 2.0 (1.6-2.3) mg/dL Total Bilirubin 0.7 (0.2-1.3) mg/dL AST 32 (14-36) U/L ALT 18 (4-34) U/L Alkaline Phosphatase 43 (38-126) U/L Troponin I (0.000-0.034) ng/mL Total Protein 7.3 (6.3-8.2) g/dL Albumin 4.2 (3.5-5.0) g/dL TSH 3.120 (0.465-4.680) mIU/L Free T4 1.04 (0.78-2.19) ng/dL Free T3 pg/mL 3.9 (2.8-5.3) pg/ml 10/04/23 Range/Units 08:36 WBC (3.8-10.6) k/uL RBC (3.80-5.40) m/uL Hgb (11.4-16.0) gm/dL Hct (34.0-46.0) % MCV (80.0-100.0) fL MCH (25.0-35.0) pg MCHC (31.0-37.0) g/dL RDW (11.5-15.5) % Plt Count (150-450) k/uL MPV Neutrophils % % Lymphocytes % % Monocytes % % Eosinophils % % Basophils % % Neutrophils # (1.3-7.7) k/uL Lymphocytes # (1.0-4.8) k/uL Monocytes # (0-1.0) k/uL Eosinophils # (0-0.7) k/uL Basophils # (0-0.2) k/uL PT (10.0-12.5) sec INR (<1.2) APTT (22.0-30.0) sec Sodium (137-145) mmol/L Potassium (3.5-5.1) mmol/L Chloride (98-107) mmol/L Carbon Dioxide (22-30) mmol/L Anion Gap mmol/L BUN (7-17) mg/dL Creatinine (0.52-1.04) mg/dL Est GFR (CKD-EPI)AfAm (>60 ml/min/1.73 sqM) Est GFR (CKD-EPI)NonAf (>60 ml/min/1.73 sqM) Glucose (74-99) mg/dL Calcium (8.4-10.2) mg/dL Magnesium (1.6-2.3) mg/dL Total Bilirubin (0.2-1.3) mg/dL AST (14-36) U/L ALT (4-34) U/L Alkaline Phosphatase (38-126) U/L Troponin I <0.012 (0.000-0.034) ng/mL Total Protein (6.3-8.2) g/dL Albumin (3.5-5.0) g/dL TSH (0.465-4.680) mIU/L Free T4 (0.78-2.19) ng/dL Free T3 pg/mL (2.8-5.3) pg/ml Disposition Clinical Impression: Chest pain Disposition: ADMITTED IP TO THIS HOSP Is patient prescribed a controlled substance at d/c from ED?: No Referrals: None,Stated [Primary Care Provider] - 1-2 days [facility] [NON-STAFF] - (Clinic for [facility] residents with no insurace. Please call to set up appointment. ) Forms: Outpatient Therapy List Time of Disposition: 11:23
[2023-10-04] MEDS: LORazepam 2 MG/ML INJ IV STA (08:38)
[2023-10-04 09:03] LABS: Basophils % (A) 1 %; Eosinophils % (A) 1 %; HCT 43.9 % (34.0-46.0); Lymphocytes # (A) 1.3 k/uL (1.0-4.8); Lymphocytes % (A) 16 %; MCH 29.2 pg (25.0-35.0); MCHC 34.3 g/dL (31.0-37.0); MCV 85.3 fL (80.0-100.0); Monocytes # (A) 0.2 k/uL (0-1.0); Monocytes % (A) 3 %; Neutrophils # (A) 6.2 k/uL (1.3-7.7); Neutrophils % (A) 79 %; Platelet Count 315 k/uL (150-450); RBC 5.15 m/uL (3.80-5.40); RDW 12.8 % (11.5-15.5); WBC 7.8 k/uL (3.8-10.6)
[2023-10-04 09:18] LABS: ALT 18 U/L (4-34); AST 32 U/L (14-36); African American GFR (CKD) >90 (>60 ml/min/1.73 sqM); Albumin 4.2 g/dL (3.5-5.0); Alkaline Phosphatase 43 U/L (38-126); Anion Gap 9 mmol/L; Blood Urea Nitrogen 11 mg/dL (7-17); Calcium 9.7 mg/dL (8.4-10.2); Carbon Dioxide 24 mmol/L (22-30); Chloride 105 mmol/L (98-107); Glucose 176 mg/dL (74-99); Non-African American GFR(CKD) >90 (>60 ml/min/1.73 sqM); Potassium 3.4 mmol/L (3.5-5.1); Sodium 138 mmol/L (137-145); Total Bilirubin 0.7 mg/dL (0.2-1.3); Total Protein 7.3 g/dL (6.3-8.2)
[2023-10-04 09:24] VITALS: TEMP 97.7
[2023-10-04 09:26] LABS: INR 0.9 (<1.2)
[2023-10-04 09:35] LABS: T4, Free (Free Thyroxine) 1.04 ng/dL (0.78-2.19)
[2023-10-04 10:05] VITALS: RESP 18
[2023-10-04] MEDS: ASPIRIN 81 MG PO STA (10:54)
[2023-10-04] MEDS: NITROGLYCERIN SL TABS 0.4 MG TAB SUBLINGUAL STA (10:55)
--- NOTE | 2023-10-04 11:10 | XR ---
EXAMINATION TYPE: XR chest 2V DATE OF EXAM: 10/04/2023 COMPARISON: NONE HISTORY: Chest pain TECHNIQUE: Frontal and lateral views of the chest are obtained. FINDINGS: There is no focal air space opacity. No evidence for pneumothorax. No pleural effusion. The cardiac silhouette size is within normal limits. The osseous structures are grossly intact. IMPRESSION: 1. No acute cardiopulmonary process.
[2023-10-04] MEDS ORDERED: NITROGLYCERIN SL TABS 0.4 MG TAB SUBLINGUAL PRN (11:23)
[2023-10-04] MEDS: NITROGLYCERIN OINT 1 INCH/GM PACKET TOPICAL SCH (12:09)
[2023-10-04] MEDS: KETOROLAC 15 MG/ML 1 ML VIAL IVP STA (13:49)
[2023-10-04] MEDS: HYDROcodone/APAP 5-325MG 1 EACH TAB PO STA (13:51)
[2023-10-04 15:48] VITALS: BP 145/84; PULSE 99
--- NOTE | 2023-10-04 16:05 | P.HPIM ---
History of Present Illness H&P Date: 10/04/23 This note will serve as the H&P along with discharge summary. 32 year old F with PMH of ADHD presents to the ED. Initially seen in the ED on 10/02 for chest pain but left AMA prior to admission. Workup during her previous ED visit included the following: D-Dimer 0.68. Troponin 0.018, < 0.012 x 2. EKG sinus tachycardia with nonspecific T wave abnormalities. CTA chest negative for PE. She presents back to the ED today for the same complaints. Chest pain ongoing for the past month. Chest pain is left sided, under her breast, sharp and stabbing in nature, peaks at 6-7/10 in severity, worsened with certain movement and deep inspiration. She reports a history of anxiety and PTSD. In the ED, she underwent extensive evaluation. BP 147/96, HR 124, RR 18, T 97.7F, 100% on RA. CBC unremarkable. Coagulation panel unremarkable. CMP showed potassium 3.4, glucose 176. Magnesium 2.0. Troponin less than 0.0123. EKG showed sinus rhythm with nonspecific T-wave changes. CXR unremarkable. TSH 3.12. FT4 1.04. FT3 3.9. Patient was admitted for further workup and management. I discussed the plan in great detail with the patient. Her pain appears musculoskeletal. Other differentials include pleuritis or pericarditis. Pericarditis not supported with her current EKG. We plan on obtaining an echocardiogram and placing the patient on telemetry. Pain management with Toradol 15 mg IV Q6H PRN and [place] 5 Q6 PRN. I got a notification by the RN in the ED that patient wanted to sign out AMA. General: non toxic, no distress, appears at stated age Derm: warm, dry Head: atraumatic, normocephalic, symmetric Eyes: EOMI, no lid lag, anicteric sclera Mouth: no lip lesion, mucus membranes moist Cardiovascular: S1S2 tachy, no murmur, tenderness to palpation over the lower quadrant of the left breast Lungs: CTA bilateral, no rhonchi, no rales , no accessory muscle use Ext: no gross muscle atrophy, no edema, no contractures Neuro: no focal neuro deficits Psych: Alert, oriented, appropriate affect Discharge Diagnosis: Chest pain likely musculoskeletal Hypokalemia Sinus tachycardia Hyperglycemia Anxiety ADHD This complex discharge took 35 minutes to complete. Past Medical History Additional Past Medical History / Comment(s): sciatica. colitis History of Any Multi-Drug Resistant Organisms: None Reported Past Surgical History: No Surgical Hx Reported Past Psychological History: Anxiety Past Alcohol Use History: None Reported Past Drug Use History: None Reported Medications and Allergies Home Medications Medication Instructions Recorded Confirmed Type Control(Unknown) 1 tab PO HS 10/03/23 10/04/23 History Dextroamphetamine/Amphetamine 30 mg PO BID@0500,1400 10/03/23 10/04/23 History [Adderall] Magnesium Oxide [Magnesium] 500 mg PO HS 10/03/23 10/04/23 History Allergies Allergy/AdvReac Type Severity Reaction Status Date / Time No Known Allergies Allergy Verified 10/04/23 10:40 Physical Exam Vitals: Vital Signs Temp Pulse Resp BP Pulse Ox 10/04/23 15:40 99 18 145/84 100 10/04/23 13:38 102 H 18 129/88 100 10/04/23 12:03 102 H 18 130/82 100 10/04/23 10:52 98 18 135/92 100 10/04/23 09:58 124 H 18 147/96 100 10/04/23 07:55 97.7 F 142 H 24 140/102 97 Intake and Output 10/04/23 10/04/23 10/04/23 06:59 14:59 22:59 Other: Weight 63.503 kg Results CBC & Chem 7: 10/04/23 08:36 10/04/23 08:36 Labs: Abnormal Lab Results - Last 24 Hours (Table) 10/04/23 Range/Units 08:36 Potassium 3.4 L (3.5-5.1) mmol/L Glucose 176 H (74-99) mg/dL
[2023-10-05] MEDS ORDERED: ASPIRIN 325 MG TAB PO SCH (09:00)
== END 2023-10-04 15:40 | disposition left against medical advice (07) ==
LOC: EC 07:54 → 6NMEDSUR 11:23
PROVIDERS: ADMIT Family Medicine; ATTEND Family Medicine
DX: R07.89 Other chest pain (principal); E87.6 Hypokalemia; R00.0 Tachycardia, unspecified; F90.9 Attention-deficit hyperactivity disorder, unspecified type; F43.10 Post-traumatic stress disorder, unspecified; F41.9 Anxiety disorder, unspecified; Z79.3 Long term (current) use of hormonal contraceptives; Z79.899 Other long term (current) drug therapy; Z82.49 Family history of ischemic heart disease and other diseases of the circulatory system
CPT/HCPCS: 96374; 96375; 99285; 36415; 93005; 84439; 84481; 80053; 83735; 84443; 84484; 85025; 85610; 85730; 71046; G0378; J2060; J1885